=== PATIENT | male | born 1970 | race Caucasian/White ===

== ENCOUNTER 2017-03-05 16:22 | Emergency (ER) | payer OTHER ==
[2017-03-05] MEDS ORDERED: Lidocaine 1% 20 ML MDV INJECT ONE (16:41)
[2017-03-05] MEDS ORDERED: Bacitracin Oint 1 GM U/D Packet TOP ONE (16:41)
[2017-03-05 16:43] VITALS: BP 148/95
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
--- NOTE | 2017-03-07 10:35 | CR ---
Fingers Thumb Lt FA INDICATION: tablesaw injury FINDINGS: Scattered degenerative changes. No definitive evidence for acute fracture.
== END 2017-03-05 18:01 | disposition home or self-care (01) ==
LOC: JP.ED 16:22
DX: S61.012A Laceration without foreign body of left thumb without damage to nail, initial encounter (principal); Z98.890 Other specified postprocedural states; Z88.0 Allergy status to penicillin; Z88.8 Allergy status to other drugs, medicaments and biological substances; W27.0XXA Contact with workbench tool, initial encounter
CPT/HCPCS: 12042; 73140-26-FA; 73140-FA; 99284-25